=== PATIENT | female | born 1995 | race Caucasian/White ===

== ENCOUNTER 2019-07-23 12:12 | Inpatient (IN) | payer OTHER ==
[~2019-07-23] VITALS: Ht 162.6 cm; Wt 104.3 kg
[~2019-07-23 12:12] MED LIST: BUPIVACAINE /PF 0.5% 30 ML VIAL INJ ONE; LR 1,000 ML IV.SOLN IV ONE; MORPHINE SULFATE 10MG/10ML PF AMP EP ONE; NS IRRIG SOLN 1000 ML IR ONE; ONDANSETRON HCL 4 MG/2 ML VIAL IVP ONE
[2019-07-23] MEDS ORDERED: LR 1,000 ML IV ONE (16:34)
[2019-07-23] MEDS ORDERED: OXYTOCIN/0.9 % SODIUM CHLORIDE 1,000 ML IV SCH (16:34)
[2019-07-23] MEDS ORDERED: NALBUPHINE HCL 10 MG/ML AMP IVP PRN (16:45)
[2019-07-23 16:59] LABS: BASOPHILS # (AUTO) 0.1 K/uL (0.0-0.2); BASOPHILS % (AUTO) 0.8 % (0.0-2.0); EOSINOPHILS # (AUTO) 0.1 K/uL (0.0-0.4); EOSINOPHILS % (AUTO) 0.6 % (0.0-4.0); HEMATOCRIT 35.3 % (36-48); LYMPHOCYTES # (AUTO) 1.5 K/uL (1.0-5.5); MEAN CORPUSCULAR HEMOGLOBIN 29 pg (27-31); MEAN CORPUSCULAR HGB CONC 34 % (32-36); MEAN CORPUSCULAR VOLUME 86 fL (79.0-98.0); MONOCYTES # (AUTO) 0.8 K/uL (0.0-1.0); MONOCYTES % (AUTO) 8.3 % (1.7-9.3); NEUTROPHILS # (AUTO) 7.4 K/uL (1.8-7.7); NEUTROPHILS % (AUTO) 75.3 % (40.0-70.0); PLATELET COUNT (AUTO) 338 K/uL (130-430); RED BLOOD CELL COUNT(AUTO) 4.08 MIL/uL (4.2-6.2); RED CELL DISTRIBUTION WIDTH 13.8 % (9.0-15.0); WHITE BLOOD COUNT (AUTO) 9.8 K/uL (4.8-10.8)
[2019-07-23] MEDS ORDERED: MISOPROSTOL 100 MCG TABLET (CYTOTEC) PO SCH (17:30)
[2019-07-23] MEDS: MISOPROSTOL 100 MCG TABLET (CYTOTEC) PO PRN ×2 (18:00→22:03)
[2019-07-23 18:32] VITALS: BP_SYST 119
[2019-07-24] MEDS: MISOPROSTOL 100 MCG TABLET (CYTOTEC) PO PRN (02:06)
[2019-07-24] MEDS ORDERED: LR 500 ML IV ONE (05:42)
[2019-07-24] MEDS ORDERED: fentaNYL CITRATE/PF 100 MCG/2 ML AMP ONE (05:43)
[2019-07-24] MEDS ORDERED: ROPIVACAINE HCL/PF 0.2% 200 ML ONE (05:44)
[2019-07-24] MEDS ORDERED: FENT2mCg/mL-ROPIVA0.2%/NS EPID 200 ML EP SCH (05:45)
[2019-07-24] MEDS ORDERED: LR 1,000 ML IV ONE (08:17)
[2019-07-24] MEDS ORDERED: CEFAZOLIN 2 GM IVPB PREMIX 50 ML IV ONE (08:30)
[2019-07-24] MEDS ORDERED: MORPHINE SULFATE 10MG/10ML PF AMP EP SCH (09:30)
[2019-07-24] MEDS ORDERED: KETOROLAC TROMETHAMINE 60 MG/2 ML VIAL IM PRN (09:30)
[2019-07-24] MEDS ORDERED: ONDANSETRON HCL 4 MG/2 ML VIAL IVP PRN (09:30)
[2019-07-24] MEDS ORDERED: NALBUPHINE HCL 10 MG/ML AMP IVP PRN (09:30)
[2019-07-24] MEDS ORDERED: fentaNYL CITRATE/PF 100 MCG/2 ML AMP IVP PRN ×2 (09:30)
[2019-07-24] MEDS ORDERED: NALOXONE HCL 0.4 MG/ML AMP (NARCAN) IVP PRN ×2 (09:30)
[2019-07-24] MEDS ORDERED: DIPHENHYDRAMINE INJ 50 MG/ML VIAL IVP PRN (09:30)
[2019-07-24 09:58] VITALS: BP_SYST 119
[2019-07-24 10:20] VITALS: BP_SYST 111
[2019-07-24] MEDS ORDERED: LR 1,000 ML IV SCH (18:43)
[2019-07-24] MEDS ORDERED: OXYTOCIN/0.9 % SODIUM CHLORIDE 1,000 ML IV ONE (18:43)
[2019-07-24] MEDS ORDERED: MEASLES,MUMPS&RUBELLA VACC/PF 12500 UNIT/0.5 ML VIAL SUBQ PRN (18:45)
[2019-07-24] MEDS ORDERED: LANOLIN 7 GM OINT. TP PRN (18:45)
[2019-07-24] MEDS ORDERED: SENNOSIDES/DOCUSATE SODIUM 1 TAB TABLET(SENOKOT-S) PO PRN (18:45)
[2019-07-25] MEDS: IBUPROFEN 600 MG TABLET PO SCH ×4 (06:00→23:50)
[2019-07-25 06:22] LABS: BASOPHILS % (AUTO) 0.5 % (0.0-2.0); EOSINOPHILS # (AUTO) 0.1 K/uL (0.0-0.4); EOSINOPHILS % (AUTO) 0.6 % (0.0-4.0); HEMATOCRIT 32.7 % (36-48); LYMPHOCYTES # (AUTO) 1.1 K/uL (1.0-5.5); MEAN CORPUSCULAR HEMOGLOBIN 30 pg (27-31); MEAN CORPUSCULAR HGB CONC 34 % (32-36); MONOCYTES % (AUTO) 9.6 % (1.7-9.3); NEUTROPHILS # (AUTO) 8.1 K/uL (1.8-7.7); NEUTROPHILS % (AUTO) 78.3 % (40.0-70.0); PLATELET COUNT (AUTO) 262 K/uL (130-430); RED BLOOD CELL COUNT(AUTO) 3.72 MIL/uL (4.2-6.2); RED CELL DISTRIBUTION WIDTH 13.9 % (9.0-15.0); WHITE BLOOD COUNT (AUTO) 10.3 K/uL (4.8-10.8)
[2019-07-25 07:03] LABS: MEAN CORPUSCULAR VOLUME 88 fL (79.0-98.0)
[2019-07-25] MEDS: SIMETHICONE 80 MG TAB.CHEW PO PRN ×3 (12:39→23:51)
[2019-07-25] MEDS: DOCUSATE SODIUM 100 MG CAPSULE PO PRN ×2 (18:39→23:52)
[2019-07-26] MEDS: IBUPROFEN 600 MG TABLET PO SCH ×2 (06:00→12:11)
[2019-07-26] MEDS: DOCUSATE SODIUM 100 MG CAPSULE PO PRN (06:04)
[2019-07-26] MEDS: SIMETHICONE 80 MG TAB.CHEW PO PRN ×2 (06:05→12:11)
== END 2019-07-26 15:05 | disposition home or self-care (01) | DRG 540 ==
LOC: SPU 16:15
PROVIDERS: ADMIT Obstetrics & Gynecology; ATTEND Obstetrics & Gynecology
PROC: 10D00Z1 Extraction of Products of Conception, Low, Open Approach (ICD-10-PCS; principal; 2019-07-24 10:00)
DX: O76 Abnormality in fetal heart rate and rhythm complicating labor and delivery (principal); O75.0 Maternal distress during labor and delivery; Z37.0 Single live birth; Z3A.39 39 weeks gestation of pregnancy
CPT/HCPCS: 36415; 81002-TC; 85025; 86592; 86886; 86900; 86901; 94760; J0690; J1200; J1885; J2274; J2405; J2590; J3010; J3490; J7120

== ENCOUNTER 2019-07-29 18:30 | Emergency (ER) | payer OTHER ==
[~2019-07-29] VITALS: Ht 162.6 cm; Wt 100.7 kg
[2019-07-29 18:45] VITALS: BP_SYST 114
[2019-07-29 20:35] VITALS: BP_SYST 114
== END 2019-07-29 20:35 | disposition home or self-care (01) ==
LOC: SED 18:30
DX: G89.18 Other acute postprocedural pain (principal)
CPT/HCPCS: 99281